=== PATIENT | male | born 1980 | race Caucasian/White ===

== ENCOUNTER 2022-05-26 00:38 | Emergency (ER) | payer OTHER ==
[~2022-05-26] VITALS: Ht 177.8 cm; Wt 125.6 kg
[2022-05-26] MEDS ORDERED: HYDROCODON-ACE1 EA10 PO (00:55)
[2022-05-26] MEDS ORDERED: AMOX TR-K CLV1 EAC1 PO (00:55)
== END 2022-05-26 01:40 | disposition home or self-care (01) ==
LOC: ED 00:38
DX: K02.9 Dental caries, unspecified (principal); K04.7 Periapical abscess without sinus
CPT/HCPCS: 99282; A9270

== ENCOUNTER 2024-01-11 17:07 | Emergency (ER) | payer OTHER ==
[~2024-01-11] VITALS: Ht 177.8 cm; Wt 120.5 kg
[~2024-01-11 17:07] MED LIST: AMOX TR-K CLV1 EAC1 PO; HYDROCODON-ACE1 EA10 PO
[2024-01-11] MEDS ORDERED: CEPHALEXIN500 M1 PO (19:09)
[2024-01-11] MEDS ORDERED: CEFTRIAXONE/SODIUM CHLORIDE 2 GM/100 ML PIGGYBACK IV ONE (19:15)
[2024-01-11 19:23] LABS: BASOPHILS 0.8 % (0-2); EOSINOPHILS 2.1 % (0-6); HEMATOCRIT 41.1 % (35.0-50.0); HEMOGLOBIN 13.9 g/dL (12.0-18.0); LYMPHOCYTES 29.7 % (24-44); MCHC 33.8 g/dl (30-36); MCV 94.9 fl (81-99); MONOCYTES 7.9 % (0-12); NEUTROPHILS 59.5 % (39-80); PLATELET COUNT 293 K/uL (140-440); RBC 4.33 M/ul (4.3-5.7); RDW 13.6 (10.5-15.0)
[2024-01-11 19:39] LABS: ALBUMIN 3.6 g/dL (3.4-5.0); ALBUMIN/GLOBULIN RATIO 1.09 (1.1-2.4); ANION GAP 12.9 (7-21); BILIRUBIN, TOTAL 0.2 ng/dL (0.2-1.0); BUN/CREATININE RATIO 10.98 (6.0-28.6); CALCIUM 9.2 mg/dL (8.5-10.1); CREATININE, SERUM 0.91 mg/dL (0.70-1.30); POTASSIUM 3.9 mmol/L (3.5-5.1); PROTEIN, TOTAL 6.9 g/dL (6.4-8.2)
[2024-01-11 20:00] VITALS: BP 142/99
== END 2024-01-11 20:00 | disposition home or self-care (01) ==
LOC: ED 17:07
PROVIDERS: Emergency Medicine
DX: L03.115 Cellulitis of right lower limb (principal)
CPT/HCPCS: 36415; 80053; 85025; 93971; 96374; 99283-25; J0696